=== PATIENT | male | born 1945 | race Two or more races ===

== ENCOUNTER 2020-09-28 08:00 | Outpatient (CLI) | payer MEDICARE, OTHER ==
--- NOTE | 2020-09-28 11:42 | XRAY Report ---
PROCEDURE: Chest 2 View X-Ray INDICATIONS: COUGH TECHNIQUE: 2 view(s) of the chest. COMPARISON: None. FINDINGS: Surgical changes and devices: None. Lungs and pleura: No pleural effusions or pneumothorax. Lungs are clear. Mediastinum: Mediastinal contours are normal. Heart size is normal. Bones and chest wall: No suspicious bony abnormalities. Soft tissues appear unremarkable. IMPRESSION: No acute cardiopulmonary process demonstrated radiographically. CT scan could be conside red for further workup of chronic cough. Reviewed by: Ag Martin MD on 09/28/2020 11:41 AM PDT Approved by: Ag Martin MD on 09/28/2020 11:41 AM PDT Station ID: [id number]
== END 2020-09-28 23:59 | disposition home or self-care (01) ==
LOC: DI.S 08:00
PROVIDERS: ATTEND Physician Assistant Medical
DX: R05 Cough (principal)